=== PATIENT | female | born 1995 | race Caucasian/White ===

== ENCOUNTER → 2019-12-31 | Outpatient (CLI) | payer BC ==
--- NOTE | 2019-12-31 11:09 | REP ---
Right ankle series: Five views. History: Injury. Findings: Five views right ankle demonstrate anterolateral soft-tissue swelling moderate in degree. Ankle mortise is intact. No fracture is visible. Impression: No fracture seen. Moderate anterolateral soft-tissue swelling. Electronically Signed by Collin Valadez MD 12/31/2019 11:01 A
== END ==
LOC: M LRY 10:37
PROVIDERS: ATTEND Physician Assistant
DX: S99.911A Unspecified injury of right ankle, initial encounter (principal); W18.30XA Fall on same level, unspecified, initial encounter; Y92.9 Unspecified place or not applicable

== ENCOUNTER → 2020-03-31 | Outpatient (CLI) | payer BC ==
--- NOTE | 2020-03-31 11:21 | REP ---
LEFT ANKLE, FOUR VIEWS: There is no evidence of an acute fracture, dislocation, or intrinsic bone disease. IMPRESSION: No fracture or dislocation. Electronically Signed by John Miranda MD 03/31/2020 12:20 P
== END ==
LOC: M LRY 10:01
PROVIDERS: ATTEND Physician Assistant
DX: S99.912A Unspecified injury of left ankle, initial encounter (principal)